=== PATIENT | male | born 1990 | race Caucasian/White ===

== ENCOUNTER → 2023-12-14 09:45 | Outpatient (REF) | payer OTHER, SELFPAY | LOC: DHSLP 09:45 | PROVIDERS: ATTENDING PHYSICIAN Internal Medicine; FAMILY PHYSICIAN Family Medicine | DX: G47.30 Sleep apnea, unspecified (principal); R06.83 Snoring; G47.00 Insomnia, unspecified | CPT/HCPCS: 95810 ==

== ENCOUNTER → 2024-02-15 07:23 | Outpatient (REF) | payer OTHER, SELFPAY ==
--- NOTE | 2024-02-15 09:56 | EEG.RPT ---
Electroencephalogram Report
Recording
Date of EE02/15/24
Type of EEG: Routine
Length of EEG recordin hour 3 minutes
Done with Video Recording: Yes
Patient Status: Outpatient
Recording Conditions: Awake and Drowsy
Hyperventilation Performed: Yes
Photic Stimulation Performed: Yes
Hand Dominance: Unknown
Report
LESS THAN 1 HOUR EEG INTERPRETATION:
Unremarkable EEG for age.
CLINICAL CORRELATION:
Normal EEG, this does not exclude epilepsy. If further suspicion for epilepsy exists repeated study or longer term study can be considered.
Clinical correlation is advised.
METHODS:
A 21 channel digitized electroencephalogram (EEG) was performed using the 10/20 international system of electrode placement and one-lead of ECG recorded. Study lasted 1 hour 3 minutes.
ELECTROENCEPHALOGRAPHER IMPRESSION(S):
Quality of study
Good
Background
Background consists of predominantly alpha and theta maximum frequencies of normal medium amplitude
Normal posterior dominant rhythm of 10 hz seen which attenuates with eye opening
No background asymmetry seen
Sleep
Drowsiness present
Photic Stimulation
No activation
Hyperventilation
No activation
ECG
Normal sinus rhythm
Abnormalities
No significant abnormalities seen, no seizures or interictal epileptiform discharges seen
== END ==
LOC: EEG 07:23
PROVIDERS: ATTENDING PHYSICIAN Psychiatry & Neurology Neurology; FAMILY PHYSICIAN Family Medicine
DX: G47.00 Insomnia, unspecified (principal); R25.1 Tremor, unspecified
CPT/HCPCS: 95813

== ENCOUNTER → 2024-04-02 09:18 | Outpatient (REF) | payer BC, SELFPAY | LOC: EEG 09:18 | PROVIDERS: ATTENDING PHYSICIAN Psychiatry & Neurology Neurology; FAMILY PHYSICIAN Family Medicine | DX: R56.9 Unspecified convulsions (principal) | CPT/HCPCS: 95700; 95714 ==

== ENCOUNTER → 2024-04-05 09:37 | Outpatient (REF) | payer BC, SELFPAY | LOC: RAD 09:37 | PROVIDERS: ATTENDING PHYSICIAN Family Medicine | DX: M54.50 Low back pain, unspecified (principal) | CPT/HCPCS: 72110 ==

== ENCOUNTER → 2024-04-11 16:29 | Outpatient (REF) | payer BC, SELFPAY | LOC: MRI 3T 16:29 | PROVIDERS: ATTENDING PHYSICIAN Psychiatry & Neurology Neurology | DX: G47.00 Insomnia, unspecified (principal) | CPT/HCPCS: 70553; A9575 ==